=== PATIENT | male | born 1985 | race Caucasian/White ===

== ENCOUNTER 2016-08-04 00:30 | Inpatient (IN) | payer OTHER ==
--- NOTE | ~2016-08-04 | CO ---
Unit #: [id number] #: [id number] Patient: DESTINY VELIZ III [id number] [facility] [address] [place] [address] [id number] MR#: [id number] NAME: DESTINY VELIZ III ROOM: P175 Age: 30 Sex: M Admission Date: 08/04/2016 : 1985 Attending Physician: Stuart Barrera M.D. Primary Care Physician: Primary Care Physician No Consultation Date: 08/04/2016 CONSULTATION REPORT KATHIA Caba is a 30-year-old with history of fasciotomy along his left lower extremity in 2016. The wound continues to heal by secondary intention. There are 2 areas, left less than an inch that are still not completely closed. There is no increased redness, swelling, heat, or pus noted. The area is not warm. ASSESSMENT Old surgical site continues to heal by secondary intention. PLAN Wet-to-dry dressing daily. Dictated by... Masha FowlerADevon-C. for Robinson Christensen/chidi TD: 08/05/2016 19:33 JOB #: [id number] CONSULTATION REPORT Page 1 of 1 X Regine De Guzman CONSULTATION REPORT
--- NOTE | ~2016-08-04 | PN ---
Unit #: [id number] #: [id number] Patient: DESTINY VELIZ III [id number] [facility] [address] [place] [address] [id number] I MR#: [id number] NAME: DESTINY VELIZ III ROOM: [facility] Age: 30 Sex: M Admission Date: 08/04/2016 : 1985 Attending Physician: Stuart Barrera M.D. Admitting Physician: Stuart Barrera M.D. Primary Care Physician: Primary Care Physician Alana LUGO PROGRESS NOTES DATE 08/05/2016 DISCUSSION Destiny Veliz is a 30-year-old male. Patient interviewed, chart reviewed, obtained information from nursing staff. The patient was compliant and cooperative, mood sad/dysphoric, patient withdrawn, isolative, guarded, denied any side effects from medication. Complete review of systems unremarkable. MENTAL STATUS EXAMINATION General appearance: Patient dressed in hospital attire and dressed casually. Attention span and concentration poor. Oriented in place and person. Mood and affect was sad/dysphoric. Speech slow monotone. Thought processes circumstantial. Patient denied any thoughts of harming self or others, but guarded. Recent and remote memory poor. Insight and judgment poor. DIAGNOSIS 1. Mood disorder, NOS F32.0 2. Psychosis, NOS F29.2 ASSESSMENT/PLAN Patient to continue with the inpatient programming. Continue with trazodone 75 mg at bedtime and Zyprexa 10 mg twice daily. Dictated by... Robinson Millan/ricardo TD: 08/09/2016 09:28 JOB #: [id number] Unit #: [id number] #: [id number] Patient: DESTINY VELIZ III [facility] PROGRESS NOTES Page 1 of 1 X Stuart Barrera MD X PROGRESS NOTE
--- NOTE | ~2016-08-04 | PA ---
Unit #: [id number] #: [id number] Patient: DESTINY VELIZ III [id number] [facility] [address] [place] [address] [id number] MR#: [id number] NAME: DESTINY VELIZ III ROOM: [facility] Age: 30 Sex: M Admission Date: 08/04/2016 : 1985 Date of Assessment: 08/04/2016 Attending Physician: Stuart Barrera M.D. Admitting Physician: Stuart Barrera M.D. Primary Care Physician: Primary Care Physician No PSYCHIATRIC ASSESSMENT INFORMANTS The patient's reliability, fair; chart reliability, good. CHIEF COMPLAINT Needing detox and depression, hallucination. HISTORY OF PRESENT ILLNESS Mr. Destiny Veliz is a 30-year-old male, presented with the above-mentioned complaint. The patient reported currently having suicidal ideation with a plan to hurt himself. The patient reported to get a gun. The patient reported also experiencing auditory hallucination, paranoid thoughts. The patient reported believes that people are trying to kill him. The patient reported experiencing auditory hallucination. Denied any command hallucination. The patient reported psychosis. The patient denied any homicidal ideation. The patient reported decreased sleep, decreased appetite, feeling of hopelessness and worthlessness. Needing inpatient admission at this time for psychiatric stabilization. PAST PSYCHIATRIC HISTORY Remarkable for history of previous treatment inpatient at [facility] for paranoia on 07/27/2016. FAMILY HISTORY AND SOCIAL HISTORY The patient's family history is unremarkable. No known history of any abuse. No legal problems. MEDICAL HISTORY Unremarkable for any chronic medical illness. Musculoskeletal; muscle strength and tone, no atrophy or abnormal movement. Gait normal. MEDICATION HISTORY The patient is currently on Suboxone and trazodone. ALLERGIES No known drug allergies. SUBSTANCE ABUSE HISTORY The patient reported tobacco use, age of onset 6, 1-1/2 can of dip; opioid, age of onset 29. The patient reported history of IV drug use. No history of any blackout, HIV, or any withdrawal symptom. REVIEW OF SYSTEMS HEENT: Eyes, clear. Ears, nose, mouth, and throat; clear. Unit #: [id number] #: [id number] Patient: DESTINY VELIZ III CARDIOVASCULAR: Unremarkable. RESPIRATORY: Unremarkable. GI: Unremarkable. : Unremarkable. SKIN: Unremarkable. LYMPH NODE: Unremarkable. NEUROLOGIC: Unremarkable. ENDOCRINE: Unremarkable. HEMATOLOGIC: Unremarkable. ALLERGIC/IMMUNOLOGIC: Unremarkable. MUSCULOSKELETAL: Muscle strength and tone, no atrophy or abnormal movement. Gait normal. MENTAL STATUS EXAMINATION CONSTITUTIONAL: Measurement of vital signs; temperature 98.7, pulse 69, respirations 18, oxygen saturation 97%, blood pressure 106/56. Height is 5 feet 8 inches, weight 189 pounds. GENERAL APPEARANCE: The patient dressed casually. The patient did not show any facial deformity. MUSCULOSKELETAL: Muscle strength and tone, no atrophy or abnormal movement. Gait normal. PSYCHIATRIC EXAMINATION Description of speech; regular rate, normal volume, normal articulation, coherent, spontaneous. Description of thought process, goal directed. Description of association, intact. Description of abnormal psychotic thinking; the patient denied any hallucination or delusions, but mood lability, sad, psychosis, depression, suicidal ideation, substance abuse. Description of patient's judgment; concerning everyday activity, poor. Social situation, poor. Concerning psychiatric condition, poor. Complete mental status examination; oriented in time, place, and person. Recent and remote memory, fair. Attention span and concentration, fair. Language, able to name object and repeat phrases. Fund of knowledge, aware of current event, passive vocabulary intact. Mood and affect, sad and dysphoric. Insight and judgment, fair to poor. ASSETS AND LIABILITIES Assets; the patient is articulate, able to take care of his ADL. Liability; history of depression, substance abuse. ADMITTING DIAGNOSES Psychiatric: 1. Major depressive disorder, recurrent, severe, F33.2. 2. Psychosis, not otherwise specified, F29.0. 3. Amphetamine use disorder, severe, F15.20. Secondary diagnosis: Deferred. Medical diagnosis: None. Stressors: Psychosocial stressors. PSYCHIATRIC PLAN AND TREATMENT GOAL 1. Advised to admit the patient on the inpatient unit. Provide safe, supportive, and structured environment. 2. Ordered labs; CBC, CMP, UA, and UDS. 3. Detox protocol, detox monitoring, and SP1 precaution. Special observation for psychosis. Unit #: [id number] #: [id number] Patient: DESTINY VELIZ III 4. The patient to attend all the programing on the inpatient unit, group therapy, individual therapy, medication management. Advised Zyprexa 10 mg b.i.d. for psychosis and mood symptom. Trazodone 75 mg q.h.s. for sleep. The patient to attend all the programming, group therapy, individual therapy, medication management. Treatment goal to attain euthymic mood, gain insight into his problem, and learn coping skills. DISCHARGE PLAN Plan to stabilize the patient and consider followup in outpatient program. ESTIMATED LENGTH OF STAY 5 days. Dictated by... Robinson Millan/chidi TD: 08/05/2016 06:22 JOB #: [id number] PSYCHIATRIC ASSESSMENT Page 1 of 1 X Stuart Barrera MD X PSYCHIATRIC ASSESSMENT
--- NOTE | ~2016-08-04 | PN ---
Unit #: [id number] #: [id number] Patient: DESTINY VELIZ III [id number] [facility] [address] [place] [address] [id number] I MR#: [id number] NAME: DESTINY VELIZ III ROOM: [facility] Age: 30 Sex: M Admission Date: 08/04/2016 : 1985 Attending Physician: Stuart Barrera M.D. Admitting Physician: Stuart Barrera M.D. Primary Care Physician: Primary Care Physician Alana LUGO PROGRESS NOTES DATE OF SERVICE: 08/06/2016 DISCUSSION Destiny Veliz is a 30-year-old male. The patient interviewed, chart reviewed, and obtained information from nursing staff. The patient was compliant and cooperative. Mood was sad and dysphoric. The patient is currently on Celexa. The patient reported having suicidal ideation and homicidal ideation. Reported having those thoughts. The patient was unable to contract for safety. The patient was looking for a 28-day program. The patient, according to staff, was isolative, guarded, flat affect. Complete review of systems unremarkable. MENTAL STATUS EXAMINATION General appearance, the patient dressed casually. Attention span and concentration, fair. Oriented in place and person. Mood and affect, sad and dysphoric. Speech, monotone. Thought process, concrete. The patient reported having suicidal ideation and homicidal ideation, nonspecific. Recent and remote memory, poor. Insight and judgment, poor. DIAGNOSES 1. Mood disorder, not otherwise specified. 2. Psychosis, not otherwise specified. ASSESSMENT AND PLAN Continue with current medication and therapeutic protocol. We will monitor response to medication and make further adjustment of medication. If needed, consider adding Zyprexa. Dictated by... Stuart Barrera M.D. ROHAN/chidi TD: 08/06/2016 16:58 JOB #: [id number] Unit #: [id number] #: [id number] Patient: DESTINY VELIZ III [facility] PROGRESS NOTES Page 1 of 1 X Stuart Barrera MD PROGRESS NOTE
--- NOTE | ~2016-08-04 | DS ---
Unit #: [id number] #: [id number] Patient: DESTINY VEILZ III [id number] [facility] [address] [place] [address] [id number] I MR#: [id number] NAME: DESTINY VELIZ III ROOM: [facility] Age: 30 Sex: M Admission Date: 08/04/2016 : 1985 Discharge Date: 08/08/2016 Attending Physician: Stuart Barrera M.D. Primary Care Physician: Primary Care Physician No DISCHARGE SUMMARY REASON FOR ADMISSION Detox. HOSPITAL COURSE The patient was admitted to inpatient unit on 08/04/2016 and discharged on 08/08/2016. The patient was treated on the inpatient unit with detox protocol, detox monitoring, chemical dependency group, expressive therapy, psychoeducation, and psychotherapy. The patient responded well with the above modalities of treatment. Subsequently, the patient was discharged with a plan to follow up in outpatient program. DISCHARGE MEDICATIONS Desyrel 50 mg at bedtime for sleep, Zyprexa 10 mg at bedtime for mood stabilization, and Depakote 250 mg b.i.d. for mood stabilization. DISCHARGE DIAGNOSES Psychiatric: Major depressive disorder, recurrent, severe, F33.2; psychosis, not otherwise specified, F29.0; and amphetamine use disorder, severe, F15.20. Secondary diagnosis: Deferred. Medical diagnosis: None. Stressors: Psychosocial stressors. DISCHARGE INSTRUCTIONS The patient to follow up in outpatient clinic as per social service technician. CONDITION ON DISCHARGE The patient was pleasant and cooperative. Denied any psychotic symptom or any suicidal ideation. PROGNOSIS Guarded. DIET AND ACTIVITY As tolerated. Dictated by... Stuart Barrera M.D. Unit #: [id number] #: [id number] Patient: DESTINY VELIZ III SZC/modl TD: 08/08/2016 19:51 JOB #: [id number] DISCHARGE SUMMARY Page 1 of 1 X Sturat Barrera MD X DISCHARGE SUMMARY
--- NOTE | ~2016-08-04 | HP ---
Unit #: [id number] #: [id number] Patient: DESTINY VELIZ III [id number] [facility] [address] [place] [address] [id number] I MR#: [id number] NAME: DESTINY VELIZ III ROOM: P175 Age: 30 Sex: M Admission Date: 08/04/2016 : 1985 Attending Physician: Stuart Barrera M.D. Admitting Physician: Stuart Barrera M.D. Primary Care Physician: Primary Care Physician No HISTORY AND PHYSICAL HISTORY OF PRESENT ILLNESS Destiny is a 30 year old admitted to [facility] because of his polysubstance abuse which includes IV methamphetamine and heroin. PAST MEDICAL HISTORY 1. Long history of polysubstance abuse to include IV heroin 2. History of encephalopathy, December 2015 with multi organ failure and left lower extremity compartment syndrome a. Status post fasciotomy 3. Seizure disorder 4. Cardiomyopathy 5. High blood pressure PAST SURGICAL HISTORY As above ALLERGIES No known drug allergies. SOCIAL HISTORY Dips one-half can of snuff on a daily basis. Denies alcohol and admits to a history of poly illicit substance abuse. FAMILY HISTORY Medically noncontributory. REVIEW OF SYSTEMS CONSTITUTIONAL: No fever or chills. HEENT: Denies any sore throat, ear pain or runny nose. CARDIOVASCULAR: Denies chest pain, irregular heart rhythm or palpitations. CHEST: Denies shortness of breath or cough. No hemoptysis. GASTROINTESTINAL: Denies nausea, vomiting, diarrhea or chronic constipation. ENDOCRINE: Denies history of increased thirst or urination. No recent significant weight loss or gain. GENITOURINARY: Denies dysuria, frequency, or hematuria. SKIN: Denies any rashes. HEMATOLOGIC: Denies history of increased bleeding or bruising. MUSCULOSKELETAL: Denies any hot, swollen joints. No generalized muscle pain. NEUROLOGIC: Denies problems with vision or speech. No frequent, severe headaches. No numbness, tingling or weakness in any extremities. Denies loss of bladder or bowel control. Unit #: [id number] #: [id number] Patient: DESTINY VELIZ III CURRENT MEDICATIONS 1. Trazodone 75 mg q.h.s. 2. Zyprexa 10 mg b.i.d. 3. Milk of Magnesia p.r.n. 4. Maalox p.r.n. 5. Tylenol p.r.n. PHYSICAL EXAMINATION GENERAL: Alert, well-nourished, in no apparent distress. VITAL SIGNS: Blood pressure 106/56, heart rate 80, respirations 16, temperature 98.6. WEIGHT: 189 pounds. HEIGHT: 5'8". SKIN: Warm and dry without rash or lesion. HEENT: Normocephalic. TMs not viewed. Oral and nasal passages clear. Conjunctivae clear. Pupils equal, round and reactive to light and accommodation. Extraocular movements intact. NECK: Supple without lymphadenopathy or thyromegaly. HEART: Regular rate and rhythm without murmur. LUNGS: Clear. ABDOMEN: Soft, nontender. : Not done. EXTREMITIES: Open wound on his left lower extremity. This is the site of the fasciotomy December 2015. NEUROLOGICAL: Grossly within normal limits. Cranial Nerves: II: Visual bass are intact. III, IV AND : Extraocular movements are intact. Pupils are equal, round and reactive to light. V: Facial sensation is grossly normal. VII: Facial movements and expression are normal. VIII: Auditory acuity grossly intact. IX, X: Uvula is midline. Phonation is normal. XI: Patient shrugs shoulders and turns head normally. XII: Tongue protrudes in the midline. Sensory and Motor Function: Sensory and motor sensation is grossly normal. Motor: moves all extremities well. Coordination: Gait is normal. Deep Tendon Reflexes: Intact. IMPRESSION Psychiatric admission RECOMMENDATIONS PSYCHIATRIC: Per psychiatrist. MEDICAL: I see no contraindications to participating in facility's activities. MEDICAL PROGNOSIS Good. MEDICAL CONDITION Stable. Dictated by... Regine De Guzman P.A.-C. for Unit #: [id number] #: [id number] Patient: DESTINY VELIZ III Robinson Christensen/giselle TD: 08/04/2016 22:05 JOB #: [id number] HISTORY AND PHYSICAL Page 1 of 1 X Regine De Guzman HISTORY AND PHYSICAL
--- NOTE | ~2016-08-04 | PN ---
Unit #: [id number] #: [id number] Patient: DESTINY VELIZ III [id number] [facility] [address] [place] [address] [id number] I MR#: [id number] NAME: DESTINY VELIZ III ROOM: [facility] Age: 30 Sex: M Admission Date: 08/04/2016 : 1985 Attending Physician: Stuart Barrera M.D. Admitting Physician: Stuart Barrera M.D. Primary Care Physician: Primary Care Physician Alana ALVAREZ NOTES DATE OF SERVICE: 08/07/2016 DISCUSSION Destiny Veliz is a 30-year-old male, seen on 08/07/2016. The patient interviewed, chart reviewed, and obtained information from nursing staff. The patient reported having suicidal ideation, unable to contract for safety; withdrawn; isolative; sad; and dysphoric. The patient was originally admitted for detox. REVIEW OF SYSTEMS Complete review of systems unremarkable. MENTAL STATUS EXAMINATION General appearance, the patient dressed casually. Attention span and concentration, fair. Oriented in place and person. Mood and affect, sad and dysphoric. Speech, monotone. Thought process, concrete. The patient denied any thoughts of harming self or others or any psychotic symptom. Recent and remote memory, poor. Insight and judgment, poor. DIAGNOSES Mood disorder, not otherwise specified and polysubstance abuse. ASSESSMENT AND PLAN Advised to continue with current treatment at this time as the patient is unable to contract for safety. Continue with the inpatient programing. If needed, consider further adjustment of medication. Dictated by... Robinson Millan/chidi TD: 08/08/2016 17:11 JOB #: [id number] Unit #: [id number] #: [id number] Patient: EDSTINY VELIZ III [facility] PROGRESS NOTES Page 1 of 1 X Stuart Barrera MD PROGRESS NOTE
[~2016-08-04 00:30] MED LIST: ALBUTEROL17 GM INH; AMANTADINE HCL100 MG PO; AMANTADINE100 M1 PO; AMLODIPINE BESYL5 MG PO; BACTRIM DS TABL1 TAB PO; BAYER CHEWABLE81 MG PO; CIPRO PO; COREG PO; COREG3.125 MG PO; DEPAKOTE PO; DEPAKOTE250 MG PO; DESYREL50 MG DOB; FLAGYL PO; KEFLEX PO; LORTAB 5/500 TA1 TA1 PO; LORTAB 7.5-5001 TAB PO; NEXIUM PO; NO MEDICATIONS; PHENERGAN W/CO120 ML PO; PREDNISONE PO; ROBITUSSIN ALL118 ML PO; ULTRAM PO; VIBRAMYCIN100 M1 PO; VICODIN 5/500 T1 TAB PO; VOLTAREN75 MG PO; WELLBUTRIN75 M1 PO; ZITHROMAX PO
[2016-08-04 09:38] LABS: BASOPHIL# 0.1 X10e3 (0-0.3); BASOPHIL% 0.8 % (0-2.5); EOSINOPHIL# 0.2 X10e3 (0-0.7); EOSINOPHIL% 2.6 % (0.0-7.0); HEMATOCRIT 35.3 % (38.0-50.0); HEMOGLOBIN 12.2 gm/dL (13.0-16.0); LYMPHOCYTE% 31.8 % (17.0-45.0); MEAN CELL VOLUME 82.8 FL (83-96); MEAN CORPUSCULAR HEMOGLOBIN 28.6 PG (28-34); MEAN CORPUSCULAR HGB CONC 34.6 g/dL (30-36); MEAN PLATELET VOLUME 7.8 FL (6.5-11.5); MONOCYTE# 0.6 X10e3 (0-1.0); MONOCYTE% 9.1 % (3.0-12.0); NEUTROPHIL# 3.5 X10e3 (1.5-7.1); NEUTROPHIL% 55.7 % (40-75); PLATELET COUNT 222 X10e3 (140-420); RED BLOOD COUNT 4.26 X10e (3.90-5.60); RED CELL DISTRIBUTION WIDTH 13.1 % (11.0-15.5); WHITE BLOOD COUNT 6.3 X10e3 (4.0-10.5)
[2016-08-04 09:41] LABS: DIFF IND NO
[2016-08-04 09:58] LABS: ALBUMIN SERUM 3.6 g/dL (3.5-5.0); BILIRUBIN,TOTAL 0.5 mg/dL (0.2-2.0); BUN/CREATININE RATIO 15.55; CALCIUM SERUM 9.3 mg/dL (8.4-10.2); CREATININE SERUM 0.9 mg/dL (0.6-1.4); GLOM FILT RATE Estimated 112.6 mL/min (>60); POTASSIUM 4.2 mmol/L (3.5-5.1); PROTEIN TOTAL SERUM 6.2 g/dL (6.0-8.3); THYROID STIMULATING HORMONE 0.99 uIU/ml (0.34-5.60)
[2016-08-04 10:05] LABS: FREE THYROXIN (T4) 0.62 ng/dL (0.58-1.64)
[2016-08-05 09:42] LABS: URINE APPEARANCE CLEAR; URINE BILIRUBIN NEG (NEG); URINE BLOOD NEG (NEG); URINE COLOR YELLOW; URINE GLUCOSE NEG (NEG); URINE KETONE NEG (NEG); URINE LEUKOCYTE ESTERASE NEG (NEG); URINE NITRATE NEG (NEG); URINE PROTEIN NEG (NEG); URINE SPECIFIC GRAVITY 1.016 (1.003-1.035); URINE UROBILINOGEN 0.2 MG/DL (NEG)
[2016-08-05 10:09] LABS: AMPHETAMINE NEG (NEG); BARBITURATES NEG (NEG); BENZODIAZEPINES NEG (NEG); COCAINE NEG (NEG); MARIJUANA NEG (NEG); OPIATES NEG (NEG); TRICYCLIC ANTIDEPRESSANTS NEG (NEG); U METHADONE NEG (NEG)
== END 2016-08-08 12:35 | disposition home or self-care (01) | DRG 885 ==
LOC: P1E 00:30
PROVIDERS: Psychiatry & Neurology Psychiatry
PROC: HZ2ZZZZ Detoxification Services for Substance Abuse Treatment (ICD-10-PCS; principal; 2016-08-04)
DX: F33.2 Major depressive disorder, recurrent severe without psychotic features (principal); I42.9 Cardiomyopathy, unspecified; F29 Unspecified psychosis not due to a substance or known physiological condition; F15.20 Other stimulant dependence, uncomplicated; F39 Unspecified mood [affective] disorder; G40.909 Epilepsy, unspecified, not intractable, without status epilepticus; I10 Essential (primary) hypertension; F17.200 Nicotine dependence, unspecified, uncomplicated
CPT/HCPCS: 80053; 80307; 81003; 84439; 84443; 85025

== ENCOUNTER 2016-08-26 03:20 | Emergency (ER) | payer OTHER ==
--- NOTE | ~2016-08-26 | EKG ---
PATIENT: DESTINY VELIZ UNIT #: [id number] Ventricular Rate: 80 BPM Atrial Rate: 80 BPM P-R Interval: 188 ms QRS Duration: 86 ms Q-T Interval: 382 ms QTC Calculation(Bezet): 440 ms P [place]: 60 degrees Calculated R [place]: 53 degrees Calculated T [place]: -15 degrees Diagnosis Line: Normal sinus rhythm Diagnosis Line: Abnormal QRS-T angle, consider primary T wave Diagnosis Line: abnormality Diagnosis Line: Abnormal ECG Diagnosis Line: When compared with ECG of 25-JUN-2016 07:22, Diagnosis Line: Non-specific change in ST segment in Anterior Diagnosis Line: leads Diagnosis Line: Confirmed by HALEY BRIGGS MD ([id number]) on 08/26/2016 Diagnosis Line: 10:46:20 PM INTERPRETING MD: BRIGITTE MAI
--- NOTE | ~2016-08-26 | CR72 ---
[facility] A Service of [facility] RADIOLOGY TEXT RESULTS PATIENT: DESTINY VELIZ III LOCATION: [facility] : [birth year] UNIT #: [id number] AGE: [address]: Regine Quiroz APRN SEX: M ORDER DR: [id number] [facility] [address] [place], [place] [address] [id number] E MR#: [id number] Acc #: [id number] NAME: DESTINY VELIZ III : 1985 SEX: M STUDY DATE/TIME: 08/26/2016 2:53 UNIT: [facility] ROOM: STUDY DESCRIPTION: CR Chest Single View Portable Attending Physician: Regine Quiroz A.P.R.N. Ordering Physician: Regine Quiroz A.P.R.N. Primary Care Physician: Primary Care Physician No MEDICAL IMAGING REPORT This report is preliminary unless electronic signature is present EXAM Portable chest INDICATION Drug overdose, weakness, shortness of air beginning 3 hours ago. FINDINGS A portable view of the chest was obtained and compared to 06/25/2016. The heart size and vascularity are normal. The lungs are clear. The bones are unremarkable. IMPRESSION No active disease. Dictated by... Lavell Carrillo M.D. THIS IS AN ELECTRONICALLY VERIFIED REPORT Lavell Carrillo M.D. at 08/26/2016 2:21 PM KASSANDRA/gonzalo TD: 08/26/2016 06:14 JOB #: [id number] MEDICAL IMAGING REPORT Page 1 of 1 COPY
[2016-08-26 03:11] LABS: BASOPHIL% 0.7 % (0-2.5); EOSINOPHIL% 0.6 % (0.0-7.0); HEMATOCRIT 36.4 % (38.0-50.0); HEMOGLOBIN 12.3 gm/dL (13.0-16.0); LYMPHOCYTE# 0.9 X10e3 (1.0-3.5); LYMPHOCYTE% 13.6 % (17.0-45.0); MEAN CELL VOLUME 82.9 FL (83-96); MEAN CORPUSCULAR HEMOGLOBIN 28.1 PG (28-34); MEAN CORPUSCULAR HGB CONC 33.9 g/dL (30-36); MEAN PLATELET VOLUME 7.2 FL (6.5-11.5); MONOCYTE# 0.6 X10e3 (0-1.0); MONOCYTE% 8.5 % (3.0-12.0); NEUTROPHIL# 5.1 X10e3 (1.5-7.1); NEUTROPHIL% 76.6 % (40-75); PLATELET COUNT 223 X10e3 (140-420); RED BLOOD COUNT 4.39 X10e (3.90-5.60); RED CELL DISTRIBUTION WIDTH 13.1 % (11.0-15.5); WHITE BLOOD COUNT 6.7 X10e3 (4.0-10.5)
[2016-08-26 03:12] LABS: DIFF IND NO
[2016-08-26 03:23] LABS: PROTHROMBIN TIME (PATIENT) 10.8 SECONDS (9.6-11.5)
[2016-08-26 03:25] LABS: URINE SOURCE CLEAN CATCH
[2016-08-26 03:32] LABS: URINE APPEARANCE CLOUDY; URINE BILIRUBIN NEG (NEG); URINE BLOOD NEG (NEG); URINE COLOR YELLOW; URINE GLUCOSE NEG (NEG); URINE KETONE 1+ (NEG); URINE LEUKOCYTE ESTERASE NEG (NEG); URINE NITRATE NEG (NEG); URINE PH 6.5 (5-8); URINE PROTEIN NEG (NEG); URINE SPECIFIC GRAVITY 1.024 (1.003-1.035)
[2016-08-26 03:34] LABS: ALBUMIN SERUM 4.1 g/dL (3.5-5.0); ALKALINE PHOSPHATASE 64 U/L (32-92); ALT (SGPT) 28 U/L (10-40); AST (SGOT) 33 U/L (10-42); BILIRUBIN, DIRECT 0.1 mg/dL (0.0-0.2); BILIRUBIN,INDIRECT 0.7 mg/dL (0.0-0.9); BILIRUBIN,TOTAL 0.8 mg/dL (0.2-2.0); BLOOD UREA NITROGEN 19 mg/dL (9-23); BUN/CREATININE RATIO 21.11; CALCIUM SERUM 9.4 mg/dL (8.4-10.2); CARBON DIOXIDE 27 mmol/L (22-31); CHLORIDE 100 mmol/L (100-111); CREATININE SERUM 0.9 mg/dL (0.6-1.4); DEPAKENE (VALPROIC ACID) 35 ug/mL (50-125); GLOM FILT RATE Estimated 112.6 mL/min (>60); GLUCOSE FASTING 99 mg/dL (70-110); POTASSIUM 3.9 mmol/L (3.5-5.1); PROTEIN TOTAL SERUM 7.4 g/dL (6.0-8.3); SALICYLATE <4.0 mg/dL; SODIUM 136 mmol/L (135-145)
[2016-08-26 03:35] LABS: ACETAMINOPHEN <10 ug/mL; ALCOHOL BLOOD <5 mg/dL (0)
[2016-08-26 03:38] LABS: CULTURE INDICATED? NO
[2016-08-26 03:42] LABS: AMPHETAMINE POS (NEG); BARBITURATES NEG (NEG); BENZODIAZEPINES NEG (NEG); COCAINE NEG (NEG); MARIJUANA POS (NEG); OPIATES NEG (NEG); TRICYCLIC ANTIDEPRESSANTS NEG (NEG); U METHADONE NEG (NEG)
[2016-08-26 04:26] LABS: POC - CKMB 9.3 ng/mL (0.0-7.9); POC - TROPONIN <0.05 ng/mL (<=0.05)
[2016-08-26 04:43] LABS: POC - CKMB 8.3 ng/mL (0.0-7.9); POC - TROPONIN <0.05 ng/mL (<=0.05)
== END 2016-08-26 07:40 ==
LOC: CED 03:20
PROVIDERS: Nurse Practitioner
DX: T43.591A Poisoning by other antipsychotics and neuroleptics, accidental (unintentional), initial encounter (principal); F12.10 Cannabis abuse, uncomplicated; F15.10 Other stimulant abuse, uncomplicated; F32.9 Major depressive disorder, single episode, unspecified; I10 Essential (primary) hypertension; I50.9 Heart failure, unspecified; F17.210 Nicotine dependence, cigarettes, uncomplicated; Z79.82 Long term (current) use of aspirin; Z79.899 Other long term (current) drug therapy
CPT/HCPCS: 36415; 71010; 80048; 80076; 80164; 80307; 81003; 82553; 82947; 84484; 85025; 85610; 85730; 93005; 96360; 99284; G0480; J2405

== ENCOUNTER 2016-08-26 09:16 | Inpatient (IN) | payer OTHER ==
--- NOTE | ~2016-08-26 | DS ---
Unit #: [id number] #: [id number] Patient: DESTINY VELIZ III [id number] [facility] [address] [place] [address] [id number] I MR#: [id number] NAME: DESTINY VELIZ III ROOM: [facility] Age: 31 Sex: M Admission Date: 08/26/2016 : 1985 Discharge Date: 08/26/2016 Attending Physician: Stuart Barrera M.D. Primary Care Physician: Primary Care Physician No DISCHARGE SUMMARY DIAGNOSTIC STUDIES LABORATORY RESULTS: None. HOSPITAL COURSE The patient was admitted to inpatient unit on 08/26/2016 and discharged on 08/26/2016. The patient was compliant and cooperative. Denied any suicidal or homicidal ideation. Able to contract for safety. Subsequently, the patient was discharged with a plan to follow up in outpatient program. DISCHARGE MEDICATIONS Trazodone 50 mg at bedtime for sleep, Zyprexa 10 mg at bedtime for mood symptom, Depakote 250 mg b.i.d. for seizure, Risperdal 3 mg b.i.d. for mood symptom, and Norvasc 5 mg once daily for hypertension. DISCHARGE DIAGNOSES Psychiatric: 1. Mood disorder, not otherwise specified, F32.9. 2. Psychosis, not otherwise specified, F29.0. 3. Amphetamine use disorder, severe. Secondary diagnosis: Deferred. Medical diagnosis: Hypertension. Stressors: Psychosocial stressors. DISCHARGE INSTRUCTIONS The patient is to follow up in outpatient clinic as per social work lecturer. CONDITION ON DISCHARGE The patient was pleasant and cooperative. Denied any psychotic symptom or any suicidal ideation. PROGNOSIS Guarded. DIET AND ACTIVITY As tolerated. Dictated by... Stuart Barrera M.D. Unit #: [id number] #: [id number] Patient: DESTINY VELIZ III SZC/modl TD: 08/26/2016 22:52 JOB #: [id number] DISCHARGE SUMMARY Page 1 of 1 X Stuart Barrera MD DISCHARGE SUMMARY
--- NOTE | ~2016-08-26 | HP ---
Unit #: [id number] #: [id number] Patient: DESTINY VELIZ III [id number] [facility] [address] [place] [address] [id number] I MR#: [id number] NAME: DESTINY VELIZ III ROOM: [facility] Age: 30 Sex: M Admission Date: 08/26/2016 : 1985 Attending Physician: Stuart Barrera M.D. Admitting Physician: Stuart Barrera M.D. Primary Care Physician: Primary Care Physician No HISTORY AND PHYSICAL Destiny is a 30 year old who was admitted and discharged within the first 24 hours. He was not seen for an H and P. Dictated by... Regine De Guzman P.A.-C. for Robinson Christensen/carmen TD: 08/26/2016 20:37 JOB #: [id number] HISTORY AND PHYSICAL Page 1 of 1 X Rgeine De Guzman X HISTORY AND PHYSICAL
--- NOTE | ~2016-08-26 | PA ---
Unit #: [id number] #: [id number] Patient: DESTINY VELIZ III [id number] [facility] [address] [place] [address] [id number] MR#: [id number] NAME: DESTINY VELIZ III ROOM: [facility] Age: 30 Sex: M Admission Date: 08/26/2016 : 1985 Date of Assessment: 08/26/2016 Attending Physician: Stuart Barrera M.D. Admitting Physician: Stuart Barrera M.D. Primary Care Physician: Primary Care Physician No PSYCHIATRIC ASSESSMENT INFORMANT(S) Patient: Reliability fair. Chart: Reliability good. CHIEF COMPLAINT Depression. HISTORY OF PRESENT ILLNESS Mr. Destiny Veliz is a 30-year-old male well known to us from his previous admission on August 03. Patient presented with depression, suicide attempt. Patient attempted to overdose on meth and Zyprexa. Patient denied any homicidal ideation, currently denied any suicidal ideation. Patient was transferred due to above reason. Patient reports that he is not suicidal. Patient was pleasant, cooperative, made good eye contact, able to answer questions coherently. Patient reported using meth. Reported experiencing paranoia, but denied any auditory or visual hallucination at this time. Patient has a significant history of substance abuse and needed inpatient admission for psychiatric stabilization. PAST PSYCHIATRIC HISTORY [facility] FAMILY HISTORY AND SOCIAL HISTORY Patient's family history is unremarkable. No history of any abuse. No history of illegal problem. MEDICAL HISTORY Unremarkable for any chronic medical illness. MUSCULOSKELETAL, MUSCLE STRENGTH AND TONE: No atrophy or abnormal movements. GAIT: Normal. MEDICATION HISTORY Patient is currently on no medication, but when last discharged from the hospital he was on trazodone 50 mg at bedtime; Zyprexa 10 mg at bedtime; Depakote 250 mg b.i.d.; Risperdal 3 mg twice daily; Norvasc 5 mg once daily. ALLERGIES No known drug allergies. Unit #: [id number] #: [id number] Patient: DESTINY VELIZ III SUBSTANCE ABUSE HISTORY History of tobacco use, methamphetamine abuse, history of IV drug use. REVIEW OF SYSTEMS HEENT: Eyes: Clear. Ears, nose, mouth, throat: Clear. CARDIOVASCULAR AND RESPIRATORY: Unremarkable. GI/: Unremarkable. SKIN, LYMPH NODE, NEUROLOGIC, ENDOCRINE, HEMATOLOGIC, ALLERGIC, IMMUNOLOGIC: Unremarkable. MUSCLE STRENGTH AND TONE: No atrophy or abnormal movement. GAIT: Normal. MENTAL STATUS EXAM CONSTITUTIONAL: Measurement of vital signs: Temperature 98.3, pulse 78, respirations 12, 95% oxygen saturation, blood pressure 103/73. HEIGHT: 5 feet 8 inches. WEIGHT: 188 pounds. GENERAL APPEARANCE: Patient dressed casually. No facial deformity noted. MUSCULOSKELETAL: Please see above. PSYCHIATRIC EXAMINATION DESCRIPTION OF SPEECH: Regular rate, normal volume, normal articulation. DESCRIPTION OF THOUGHT PROCESS: Goal-directed. DESCRIPTION OF ASSOCIATION: Intact. DESCRIPTION OF ABNORMAL PSYCHOTIC THINKING: The patient denied any hallucinations, delusion, mood lability. Reported suicidal ideation but able to contract for safety. Denied any homicidal ideation. DESCRIPTION OF THE INSIGHT AND JUDGMENT CONCERNING EVERYDAY ACTIVITY: Poor. SOCIAL SITUATION: Poor. CONCERNING PSYCHIATRIC CONDITION: Poor. COMPLETE MENTAL STATUS EXAMINATION Oriented to time, place and person. Recent and remote memory fair. ATTENTION SPAN AND CONCENTRATION: Fair. LANGUAGE: Able to name objects and repeat phrases. FUND OF KNOWLEDGE: Aware of current events and passive vocabulary intact. MOOD AND AFFECT: Sad, dysphoric. INSIGHT AND JUDGMENT: Fair to poor. ASSETS AND LIABILITIES ASSETS: Patient articulate, able to take care of his ADL. LIABILITIES: History of depression, substance abuse. ADMITTING DIAGNOSES [place] I: Mood disorder, NOS, F32.9. Psychosis, NOS Amphetamine use disorder, severe [place] II: Deferred. [place] III: None. [place] IV: Psychosocial stressors. [place] V: PSYCHIATRIC PLAN/TREATMENT GOALS/DISCHARGE PLAN 1. Advised to admit patient on the inpatient unit, provide safe, supportive and structured environment. 2. Resume home medication. If needed, consider further adjustment in medication. Unit #: [id number] #: [id number] Patient: DESTINY VELIZ III 3. Treatment goal: To attain euthymic mood, gain insight into his problems and learn coping skills. 4. Discharge Plan: Plan to stabilize patient and consider followup in outpatient program. ESTIMATED LENGTH OF STAY 1 to 3 days Dictated by... Stuart Barrera M.D. ROHAN/andria TD: 08/26/2016 22:44 JOB #: [id number] PSYCHIATRIC ASSESSMENT Page 1 of 1 X Stuart Barrera MD PSYCHIATRIC ASSESSMENT
== END 2016-08-26 16:47 | disposition home or self-care (01) | DRG 885 ==
LOC: P2L 09:16
DX: F39 Unspecified mood [affective] disorder (principal); F15.20 Other stimulant dependence, uncomplicated; F29 Unspecified psychosis not due to a substance or known physiological condition

== ENCOUNTER 2016-08-27 07:12 | Inpatient (IN) | payer OTHER ==
--- NOTE | ~2016-08-27 | PA ---
Unit #: [id number] #: [id number] Patient: DESTINY VELIZ III [id number] [facility] [address] [place] [address] [id number] I MR#: [id number] NAME: DESTINY VELIZ III ROOM: [facility] Age: 31 Sex: M Admission Date: 08/27/2016 : 1985 Date of Assessment: 08/27/2016 Attending Physician: Stuart Barrera M.D. Admitting Physician: Stuart Barrera M.D. Primary Care Physician: Primary Care Physician No PSYCHIATRIC ASSESSMENT INFORMANTS The patient reliability, fair informant and chart reliability, good. CHIEF COMPLAINT Hearing voices and suicidal. HISTORY OF PRESENT ILLNESS Mr. Destiny Veliz is a 31-year-old male, seen on with the above-mentioned complaint. The patient recently discharged, readmitted due to psychotic symptom. The patient believes that people are wanting to harm him, coming from [place]. The patient reports that he would get himself a gun and end his life or kill himself. The patient was discharged yesterday. The patient reported he needs some help to cope with his fear. The patient reported hearing voices and having suicidal ideation. Needing inpatient admission at this time for psychiatric stabilization. PAST PSYCHIATRIC HISTORY Remarkable for history of previous treatment in 06/2016, 07/2016, and 08/2016. FAMILY HISTORY AND SOCIAL HISTORY The patient's family history is unremarkable. No known history of any abuse. No history of legal problem. MEDICAL HISTORY The patient was on Suboxone. No chronic medical illness. Musculoskeletal; muscle strength and tone, no atrophy or abnormal movement. Gait normal. MEDICATION HISTORY The patient is noncompliant with medication. ALLERGIES No known drug allergies. SUBSTANCE ABUSE HISTORY History of amphetamine abuse. The patient reported tobacco use, age of onset 6; opioid, age of onset 29; and amphetamine, age of onset 16. ALLERGIES No known drug allergies. Unit #: [id number] #: [id number] Patient: DESTINY VELIZ III REVIEW OF SYSTEMS HEENT: Eyes, clear. Ears, nose, mouth, and throat; clear. CARDIOVASCULAR: Unremarkable. RESPIRATORY: Unremarkable. GI: Unremarkable. : Unremarkable. SKIN: Unremarkable. LYMPH NODE: Unremarkable. NEUROLOGIC: Unremarkable. ENDOCRINE: Unremarkable. HEMATOLOGIC: Unremarkable. ALLERGIC/IMMUNOLOGIC: Unremarkable. MUSCULOSKELETAL: Muscle strength and tone, no atrophy or abnormal movement. Gait normal. MENTAL STATUS EXAMINATION CONSTITUTIONAL: Measurement of vital signs; temperature 98.4, heart rate 79, respiratory rate 16, oxygen saturation 95%, and blood pressure 108/70. Height 5 feet 8 inches and weight 193 pounds. GENERAL APPEARANCE: The patient disheveled. Hygiene and grooming, poor. No facial deformity noted. MUSCULOSKELETAL: Please see above. PSYCHIATRIC EXAMINATION Description of speech, slow. Description of thought process, circumstantial. Description of association, guarded. Description of abnormal psychotic thinking; guarded, paranoid, hallucination, suicidal ideation, unable to contract for safety. Denied any homicidal ideation. Description of insight and judgment: Concerning everyday activity, poor. Social situation, poor. Concerning psychiatric condition, poor. Complete mental status examination; oriented in time, place, and person. Recent and remote memory, fair. Attention span and concentration, fair to poor. Language, able to name object and repeat phrases. Fund of knowledge, fair. Mood and affect, sad and depressed. Insight and judgment, poor. ASSETS AND LIABILITIES Assets, the patient is articulate and able to take care of his ADL. Liability, history of depression and substance abuse. ADMITTING DIAGNOSES Psychiatric: Psychosis, not otherwise specified, F29.0; mood disorder, not otherwise specified; history of bipolar mood disorder; and amphetamine use disorder, moderate to severe, F15.20. Secondary diagnosis: Deferred. Medical diagnoses: History of lower extremity compartment syndrome, status post fasciotomy, history of seizure disorder, cardiomyopathy, and hypertension. Stressors: Psychosocial stressors. PSYCHIATRIC PLAN AND TREATMENT GOAL AND DISCHARGE PLAN 1. Advised to admit the patient on the inpatient unit. Provide safe, supportive, and structured environment. 2. Ordered labs; CBC, CMP, UA, and UDS. 3. Precaution for aggression, self-harm, and special observation for psychosis. Unit #: [id number] #: [id number] Patient: DESTINY VELIZ III 4. The patient was started on detox protocol and detox monitoring. Advised to resume home medication. If needed, consider further adjustment of medication. TREATMENT GOAL To attain euthymic mood, gain insight into his problem, and learn coping skills. DISCHARGE PLAN Plan to stabilize the patient and consider followup in outpatient program. ESTIMATED LENGTH OF STAY 5 to 7 days. Dictated by... Robinson Millan/chidi TD: 08/27/2016 18:08 JOB #: [id number] PSYCHIATRIC ASSESSMENT Page 1 of 1 X Stuart Barrera MD PSYCHIATRIC ASSESSMENT
--- NOTE | ~2016-08-27 | PN ---
Unit #: [id number] #: [id number] Patient: DESTINY VELIZ III [id number] [facility] [address] [place] [address] [id number] I MR#: [id number] NAME: DESTINY VELIZ III ROOM: [facility] Age: 31 Sex: M Admission Date: 08/27/2016 : 1985 Attending Physician: Stuart Barrera M.D. Admitting Physician: Stuart Barrera M.D. Primary Care Physician: Primary Care Physician Alana ALVAREZ NOTES DATE August 30, 2016 DISCUSSION Mr. Destiny Veliz is a 31-year-old male. The patient interviewed, chart reviewed, and obtained information from the nursing staff. The patient's thoughts continue to be disorganized, guarded, paranoid. The patient sleeping good, compliant with medication. The patient still making bizarre comments. REVIEW OF SYSTEMS Complete review of systems unremarkable. MENTAL STATUS EXAMINATION General appearance: Patient dressed casually. Attention span and concentration, poor. Oriented to place and person. Mood and affect, labile. Speech, rapid. Thought process, circumstantial. Association, guarded and paranoid, delusional but denied any thoughts of harming self or others but having disorganized behavior. Recent and remote memory, poor. Insight and judgment, poor. DIAGNOSES 1. Psychosis, NOS. 2. Mood disorder, NOS. 3. Amphetamine use disorder, moderate. ASSESSMENT/PLAN Advised to continue with the current medication and therapeutic protocol and if needed consider further adjustment of medication. We will make sure the patient is stable before discharging patient, as the patient was hospitalized multiple times with similar problems. Dictated by... Robinson Millan/nathen TD: 08/31/2016 07:10 JOB #: [id number] Unit #: [id number] #: [id number] Patient: DESTINY VELIZ III [facility] PROGRESS NOTES Page 1 of 1 X Stuart Barrera MD PROGRESS NOTE
--- NOTE | ~2016-08-27 | PN ---
Unit #: [id number] #: [id number] Patient: DESTINY VELIZ III [id number] [facility] [address] [place] [address] [id number] I MR#: [id number] NAME: DESTINY VELIZ III ROOM: [facility] Age: 31 Sex: M Admission Date: 08/27/2016 : 1985 Attending Physician: Stuart Barrera M.D. Admitting Physician: Stuart Barrera M.D. Primary Care Physician: Primary Care Physician Alana LUGO PROGRESS NOTES DATE OF SERVICE 08/28/2016 DISCUSSION Mr. Destiny Veliz is a 31-year-old male. The patient interviewed, chart reviewed. Obtained information from nursing staff. The patient was sleepy, guarded, flat affect. Sad, dysphoric. The patient withdrawn, isolative, guarded. The patient tolerating medication fairly well. Complete Review of Systems: Unremarkable. MENTAL STATUS EXAMINATION General Appearance: The patient dressed casually. Attention span, concentration: Fair. Oriented in place and person. Mood and affect: Sad, dysphoric, flat affect. Speech: Monotone. Thought process: Carmen. The patient denied any thoughts of harming self or others but having those thoughts, hearing voices off and on. Recent and remote memory: Poor. Insight and judgment: Poor. DIAGNOSES 1. Psychosis not otherwise specified. 2. Bipolar mood disorder not otherwise specified. 3. Polysubstance abuse. ASSESSMENT/PLAN Advised to continue with current medication and therapeutic protocol. If needed, consider further adjustment of medication. Dictated by... Robinson Millan/elif TD: 08/29/2016 14:28 JOB #: [id number] Unit #: [id number] #: [id number] Patient: DESTINY VELIZ III [facility] PROGRESS NOTES Page 1 of 1 X Stuart Barrera MD PROGRESS NOTE
--- NOTE | ~2016-08-27 | PN ---
Unit #: [id number] #: [id number] Patient: DESTINY VELIZ III [id number] [facility] [address] [place] [address] [id number] I MR#: [id number] NAME: DESTINY VELIZ III ROOM: [facility] Age: 31 Sex: M Admission Date: 08/27/2016 : 1985 Attending Physician: Stuart Barrera M.D. Admitting Physician: Stuart Barrera M.D. Primary Care Physician: Primary Care Physician Alana LUGO PROGRESS NOTES DATE 08/29/2016 DISCUSSION Destiny Veliz is a 51-year-old male seen on 08/29/2016. Patient interviewed, chart reviewed, obtained information from the nursing staff. The patient was compliant and cooperative. Mood sad, dysphoric, anxious. Patient denied any thoughts of harming self or others, but guarded. Patient was still having hallucinations, paranoia. Multiple admissions recently. Withdrawn, isolative, flat affect. Complete review of systems unremarkable. MENTAL STATUS EXAMINATION General appearance: Patient is dressed casually. Attention span and concentration fair. Oriented in time, place and person. Mood and affect sad and dysphoric. Speech monotone. Thought process concrete. Patient still seclusive, isolative, guarded, paranoid. Passive SI. Mood lability. Recent and remote memory poor. Insight and judgement poor. DIAGNOSIS 1. Psychosis NOS. 2. Mood disorder NOS. 3. Amphetamine use disorder, moderate. ASSESSMENT AND PLAN Advise to continue with current medication and therapeutic protocol. If needed, consider further adjustment of medication. Dictated by... Robinson Millan/jessica TD: 08/30/2016 10:00 JOB #: [id number] Unit #: [id number] #: [id number] Patient: DESTINY VELIZ III [facility] PROGRESS NOTES Page 1 of 1 X Stuart Barrera MD PROGRESS NOTE
--- NOTE | ~2016-08-27 | HP ---
Unit #: [id number] #: [id number] Patient: DESTINY VELIZ III [id number] [facility] [address] [place] [address] [id number] I MR#: [id number] NAME: DESTINY VELIZ III ROOM: 86 Age: 31 Sex: M Admission Date: 08/27/2016 : 1985 Attending Physician: Stuart Barrera M.D. Admitting Physician: Stuart Barrera M.D. Primary Care Physician: Primary Care Physician No HISTORY AND PHYSICAL Destiny is a 31 year old admitted to [facility] because of his continued polysubstance abuse and after verbalizing wanting to hurt himself. He was admitted to this facility on 08/26/16 after verbalizing wanting to hurt himself. After admission to the unit, he recanted and was discharged within the first 24 hours. Patient was seen and H and P dated 08/04/16 was reviewed. This is current. No changes. Please see H and P dated 08/04/16. Dictated by... Regine De Guzman P.A.-C. for Robinson Christensen/carmen TD: 08/27/2016 20:45 JOB #: [id number] HISTORY AND PHYSICAL Page 1 of X Regine De Guzman HISTORY AND PHYSICAL
--- NOTE | ~2016-08-27 | DS ---
Unit #: [id number] #: [id number] Patient: DESTINY VELIZ III [id number] [facility] [address] [place] [address] [id number] I MR#: [id number] NAME: DESTINY VELIZ III ROOM: [facility] Age: 31 Sex: M Admission Date: 08/27/2016 : 1985 Discharge Date: 08/31/2016 Attending Physician: Stuart Barrera M.D. Primary Care Physician: Primary Care Physician No DISCHARGE SUMMARY REASON FOR ADMISSION Suicidal ideation and psychosis. DIAGNOSTIC STUDIES LABORATORY RESULTS: Unremarkable. HOSPITAL COURSE The patient was admitted to inpatient unit on 08/27/2016 and discharged on 08/31/2016. The patient was treated on the inpatient unit with group therapy, individual therapy, and medication management. The patient has a history of methamphetamine abuse prior to admission. The patient responded well with the above modalities of treatment. Subsequently, the patient was discharged with a plan to follow up in outpatient program. DISCHARGE MEDICATIONS Depakote 250 mg b.i.d. for mood stabilization, Zyprexa 20 mg at bedtime for mood stabilization and psychosis, and Desyrel 50 mg at bedtime p.r.n. for sleep. DISCHARGE DIAGNOSES Psychiatric: 1. Psychosis, not otherwise specified, F29.0. 2. Mood disorder, not otherwise specified, F32.9. 3. History of bipolar mood disorder, not otherwise specified, F31.89. 4. Amphetamine use disorder, moderate to severe, F15.20. Secondary diagnosis: Deferred. Medical diagnoses: History of lower extremity compartment syndrome, status post fasciotomy, history of seizure disorder, cardiomyopathy, hypertension. Stressors: Psychosocial stressors. DISCHARGE INSTRUCTIONS The patient is to follow up in outpatient clinic as per high school social science teacher. CONDITION ON DISCHARGE The patient was pleasant and cooperative. Denied any psychotic symptom or any suicidal ideation. PROGNOSIS Guarded. Unit #: [id number] #: [id number] Patient: DESTINY VELIZ III DIET AND ACTIVITY As tolerated. Dictated by... Robinson Millan/chidi TD: 08/31/2016 16:45 JOB #: [id number] DISCHARGE SUMMARY Page 1 of 1 X Stuart Barrera MD DISCHARGE SUMMARY
--- NOTE | ~2016-08-27 | CO ---
Unit #: [id number] #: [id number] Patient: DESTINY VELIZ III [id number] [facility] [address] [place] [address] [id number] I MR#: [id number] NAME: DESTINY VELIZ III ROOM: [facility] Age: 31 Sex: M Admission Date: 08/27/2016 : 1985 Attending Physician: Stuart Barrera M.D. Primary Care Physician: Primary Care Physician No Consultation Date: 09/02/2016 CONSULTATION REPORT SUBJECTIVE Destiny is a 31-year-old with a chronic wound on his left leg. This wound was described on 08/05/2016 and 08/27/2016. There has been no change in the wound. It continues to heal by secondary intention. Destiny and I had a nice long talk about whether to dress the wound or not. At this time, the wound is dry and will require no dressing. He is agreeable to this. Should anything else develop, we can certainly put a nonadherent dressing secured with a small piece of taper over the small open area. In addition during this admission, he had a pair of HENRIQUE hose. Those have been taken from him for safety reasons and put with his belongings. He can have them at time of discharge. Dictated by... Regine De Guzman P.A.-C. for Robinson Christensen/chidi TD: 09/02/2016 23:23 JOB #: [id number] CONSULTATION REPORT Page 1 of 1 X Regine De Guzman CONSULTATION REPORT
--- NOTE | ~2016-08-27 | CO ---
Unit #: [id number] #: [id number] Patient: DESTINY VELIZ III [id number] [facility] [address] [place] [address] [id number] I MR#: [id number] NAME: DESTINY VELIZ III ROOM: [facility] Age: 31 Sex: M Admission Date: 08/27/2016 : 1985 Attending Physician: Stuart Barrera M.D. Primary Care Physician: Primary Care Physician No Consultation Date: 08/27/2016 CONSULTATION REPORT KATHIA Caba is a 31-year-old with a chronic wound along his left lower extremity. This area was described under H and P dated 08/04/2016 and again was noted under admission H and P dated 08/27/2016. We were consulted on this chronic wound on 08/05/2016 and now again on 08/27/2016. This is a chronic wound healing by secondary intention. The wound is clean. There is no increased redness, swelling, or pus noted. The patient knows to continue current treatment of wet-to-dry dressings. We will provide this during this admission. Dictated by... Regine De Guzman P.A.-C. for Robinson Christensen/chidi TD: 08/29/2016 11:47 JOB #: [id number] CONSULTATION REPORT Page 1 of 1 X Regine De Guzman CONSULTATION REPORT
[2016-08-28 09:31] LABS: BASOPHIL% 0.7 % (0-2.5); EOSINOPHIL# 0.3 X10e3 (0-0.7); EOSINOPHIL% 6.1 % (0.0-7.0); HEMATOCRIT 37.1 % (38.0-50.0); HEMOGLOBIN 12.6 gm/dL (13.0-16.0); LYMPHOCYTE# 2.3 X10e3 (1.0-3.5); LYMPHOCYTE% 47.4 % (17.0-45.0); MEAN CELL VOLUME 83.1 FL (83-96); MEAN CORPUSCULAR HEMOGLOBIN 28.3 PG (28-34); MEAN PLATELET VOLUME 7.7 FL (6.5-11.5); MONOCYTE# 0.4 X10e3 (0-1.0); MONOCYTE% 8.6 % (3.0-12.0); NEUTROPHIL# 1.8 X10e3 (1.5-7.1); NEUTROPHIL% 37.2 % (40-75); PLATELET COUNT 210 X10e3 (140-420); RED BLOOD COUNT 4.47 X10e (3.90-5.60); RED CELL DISTRIBUTION WIDTH 12.6 % (11.0-15.5); WHITE BLOOD COUNT 4.8 X10e3 (4.0-10.5)
[2016-08-28 09:41] LABS: URINE APPEARANCE CLEAR; URINE BILIRUBIN NEG (NEG); URINE BLOOD NEG (NEG); URINE COLOR YELLOW; URINE GLUCOSE NEG (NEG); URINE KETONE NEG (NEG); URINE LEUKOCYTE ESTERASE NEG (NEG); URINE NITRATE NEG (NEG); URINE PROTEIN NEG (NEG); URINE SPECIFIC GRAVITY 1.005 (1.003-1.035); URINE UROBILINOGEN 0.2 MG/DL (NEG)
[2016-08-28 09:50] LABS: DIFF IND NO
[2016-08-28 09:55] LABS: AMPHETAMINE NEG (NEG); BARBITURATES NEG (NEG); BENZODIAZEPINES NEG (NEG); COCAINE NEG (NEG); MARIJUANA POS (NEG); OPIATES NEG (NEG); TRICYCLIC ANTIDEPRESSANTS NEG (NEG); U METHADONE NEG (NEG)
[2016-08-28 10:00] LABS: ALBUMIN SERUM 3.4 g/dL (3.5-5.0); BILIRUBIN,TOTAL 0.5 mg/dL (0.2-2.0); CALCIUM SERUM 9.1 mg/dL (8.4-10.2); CREATININE SERUM 0.8 mg/dL (0.6-1.4); GLOM FILT RATE Estimated 117.4 mL/min (>60); POTASSIUM 4.3 mmol/L (3.5-5.1); PROTEIN TOTAL SERUM 6.1 g/dL (6.0-8.3)
== END 2016-08-31 09:46 | disposition home or self-care (01) | DRG 885 ==
LOC: P1E 07:12
PROVIDERS: Psychiatry & Neurology Psychiatry
DX: F39 Unspecified mood [affective] disorder (principal); I42.9 Cardiomyopathy, unspecified; F15.20 Other stimulant dependence, uncomplicated; G40.909 Epilepsy, unspecified, not intractable, without status epilepticus; I10 Essential (primary) hypertension
CPT/HCPCS: 80053; 80164; 80307; 81003; 85025; 86592